=== PATIENT | female | born 1985 | race Caucasian/White ===

== ENCOUNTER 2017-09-19 14:46 | Emergency (ER) | payer OTHER ==
[~2017-09-19] VITALS: Ht 170.2 cm; Wt 90.7 kg
[2017-09-19] MEDS ORDERED: TETRACAINE HCL 0.5% OPTH SOLN 4 ML BTL OP ONE (16:00)
[2017-09-19] MEDS ORDERED: FLUORESCEIN SOD(OPTH) 1 MG STRP OP ONE (16:00)
== END 2017-09-19 17:28 | disposition home or self-care (01) ==
LOC: ER 14:46
DX: H57.12 Ocular pain, left eye (principal); S05.02XA Injury of conjunctiva and corneal abrasion without foreign body, left eye, initial encounter; Y99.0 Civilian activity done for income or pay
CPT/HCPCS: 99283